=== PATIENT | male | born 1975 | race African-American/Black ===

== ENCOUNTER 2016-12-20 18:07 | Emergency (ER) | payer SELFPAY ==
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
== END 2016-12-20 18:40 ==
LOC: ER 18:07
DX: F10.129 Alcohol abuse with intoxication, unspecified (principal); Z02.89 Encounter for other administrative examinations; F17.200 Nicotine dependence, unspecified, uncomplicated

== ENCOUNTER 2017-01-10 22:48 | Emergency (ER) | payer SELFPAY ==
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
== END 2017-01-10 23:05 ==
LOC: ER 22:48
DX: Z02.89 Encounter for other administrative examinations (principal); F10.129 Alcohol abuse with intoxication, unspecified